=== PATIENT | male | born 1980 | race Caucasian/White ===

== ENCOUNTER 2023-08-04 13:29 | Emergency (ER) | payer SELFPAY ==
[~2023-08-04] VITALS: Ht 172.7 cm; Wt 85.0 kg
[2023-08-04 13:36] VITALS: BP 130/80; PULSE 88; RESP 17; TEMP 97.5; O2SAT 99
== END 2023-08-04 20:50 | disposition left against medical advice (07) ==
LOC: ER 13:29
DX: F91.9 Conduct disorder, unspecified (principal); Z53.21 Procedure and treatment not carried out due to patient leaving prior to being seen by health care provider
CPT/HCPCS: 82962; 99281